=== PATIENT | female | born 1945 | race Caucasian/White ===

== ENCOUNTER 2024-10-19 18:54 | Inpatient (IN) ==
[2024-10-19 19:47] LABS: Venous Bicarbonate HCO3 22.9 mmol/L (24-28)
[2024-10-19 20:00] LABS: Activated Partial Thrombo Time 28.5 seconds (26.0-38.0); INR 1.15 (0.85-1.14)
[2024-10-19 20:16] LABS: Hemoglobin 9.6 g/dL (11.5-14.3); Red Blood Count 4.33 10^6/uL (3.63-4.92); White Blood Count 6.6 10^3/uL (3.8-11.8)
[2024-10-19] MEDS: Furosemide 40 mg/4 ml IV VIAL IV SLOW PU ONE (20:25)
[2024-10-19] MEDS: Albuterol/Ipratropium NEB.SOL (2.5/0.5 MG) 3 ML NEB.SOLN INH SCH (20:36)
[2024-10-19 20:39] LABS: Albumin 3.1 g/dL (3.5-5.7); Albumin/Globulin Ratio 1.1 (1-3); C Reactive Protein 32.09 mg/L (<8.01); Calcium 9.1 mg/dL (8.6-10.3); Creatinine, Serum 1.01 mg/dL (0.51-0.95); Globulin 2.9 g/dL (2-4); Potassium 4.5 mmol/L (3.5-5.0); Total Bilirubin 0.4 mg/dL (0.2-1.0); eGFR CKD-EPI 57.3 (>60)
[2024-10-19 20:41] LABS: ABS Basophils 0.1 10^3/uL (0.0-0.1); ABS Lymphocytes 1.2 10^3/uL (1.0-4.8); ABS Monocytes 0.3 10^3/uL (0.0-0.9); ABS Nucleated RBC 0.01 10^3/ul; Eosinophil % 0.4 %; Hematocrit 30.6 % (35-45); Lymphocyte % 17.9 %; Mean Corpuscular Hemoglobin 22.2 pg (27-33); Mean Corpuscular Hgb Conc 31.4 g/dL (31-36); Mean Corpuscular Volume 70.7 fL (80-97); Mean Platelet Volume 8.4 fL (7.5-11.2); Nucleated Red Blood Cells % 0.2 %/100WBC (0.0-0.8); Platelet Count 278 10^3/uL (150-450); Red Cell Distribution Width 22.2 % (12-17)
[2024-10-19 21:09] LABS: High Sensitivity Troponin 1 Hr 101 pg/mL (<15)
[2024-10-19] MEDS ORDERED: Ondansetron 4 mg VIAL 2 MG/ML 2 ml VIAL IV PRN (22:05)
[2024-10-20 01:06] LABS: Ferritin 34.1 ng/mL (11-307)
[2024-10-20] MEDS: Enoxaparin 40 MG/0.4 ML SYR SUBCUT SCH (01:14)
[2024-10-20] MEDS: Furosemide 40 mg/4 ml IV VIAL IV SLOW PU ONE (01:15)
[2024-10-20] MEDS: Orphenadrine Citrate INJ 30 mg/ml 2 ml VIAL (60 mg) IV ONE (02:50)
[2024-10-20] MEDS: diazePAM INJ CARPUJECT 5 MG/ML SYRINGE IV ONE (03:32)
[2024-10-20] MEDS: Morphine 2 MG/ML SYRINGE IV ONE (04:05)
[2024-10-20] MEDS: Morphine 2 MG/ML SYRINGE ONE (04:53)
[2024-10-20 05:27] LABS: ABS Lymphocytes 0.9 10^3/uL (1.0-4.8); ABS Monocytes 0.1 10^3/uL (0.0-0.9); ABS Neutrophils 4.2 10^3/uL (1.5-7.6); ABS Nucleated RBC 0.01 10^3/ul; Eosinophil % 0.1 %; Hematocrit 30.6 % (35-45); Hemoglobin 9.4 g/dL (11.5-14.3); Lymphocyte % 17.5 %; Mean Corpuscular Hemoglobin 22.2 pg (27-33); Mean Corpuscular Hgb Conc 30.7 g/dL (31-36); Mean Corpuscular Volume 72.4 fL (80-97); Mean Platelet Volume 8.7 fL (7.5-11.2); Nucleated Red Blood Cells % 0.2 %/100WBC (0.0-0.8); Platelet Count 276 10^3/uL (150-450); Red Blood Count 4.22 10^6/uL (3.63-4.92); Red Cell Distribution Width 22.2 % (12-17); White Blood Count 5.2 10^3/uL (3.8-11.8)
[2024-10-20 06:14] LABS: Anion Gap 10 mmol/L (2-16); Blood Urea Nitrogen 17 mg/dL (6-24); CO2 Carbon Dioxide 22 mmol/L (22-32); Chloride 104 mmol/L (101-111); Creatinine, Serum 1.12 mg/dL (0.51-0.95); Glucose 145 mg/dL (70-100); Magnesium 1.9 mg/dL (1.9-2.7); Sodium 136 mmol/L (135-145); eGFR CKD-EPI 50.6 (>60)
[2024-10-20] MEDS: Sulfur Hexaflouride MICROSPHR 25 MG VIAL IV PRN (09:12)
[2024-10-20] MEDS: Aspirin EC 81 mg TAB.EC (enteric coated) PO SCH (09:29)
[2024-10-20] MEDS: Nicotine PATCH 21 MG/24 HR PATCH TRANSDERM SCH (09:30)
[2024-10-20] MEDS: Ferric Gluconate IV 250 MG in NS 0.9% 250 ml 200 ML IVPB SCH (09:31)
[2024-10-20 18:32] LABS: Potassium, Whole Blood 4.3 mmol/L (3.4-4.5)
[2024-10-21 08:45] LABS: ABS Basophils 0.1 10^3/uL (0.0-0.1); ABS Eosinophils 0.1 10^3/uL (0.0-0.5); ABS Lymphocytes 2.6 10^3/uL (1.0-4.8); ABS Monocytes 0.6 10^3/uL (0.0-0.9); ABS Neutrophils 4.9 10^3/uL (1.5-7.6); Eosinophil % 0.8 %; Hematocrit 29.5 % (35-45); Mean Corpuscular Hemoglobin 21.7 pg (27-33); Mean Corpuscular Hgb Conc 30.6 g/dL (31-36); Mean Platelet Volume 8.4 fL (7.5-11.2); Nucleated Red Blood Cells % 1.2 %/100WBC (0.0-0.8); Platelet Count 272 10^3/uL (150-450); Red Blood Count 4.16 10^6/uL (3.63-4.92); Red Cell Distribution Width 21.5 % (12-17); White Blood Count 8.3 10^3/uL (3.8-11.8)
[2024-10-21 10:01] LABS: Albumin 2.9 g/dL (3.5-5.7); Albumin/Globulin Ratio 1.1 (1-3); Calcium 8.7 mg/dL (8.6-10.3); Creatinine, Serum 1.05 mg/dL (0.51-0.95); Globulin 2.7 g/dL (2-4); Potassium 4.7 mmol/L (3.5-5.0); Total Bilirubin 0.3 mg/dL (0.2-1.0); Total Protein 5.6 g/dL (6.4-8.9); eGFR CKD-EPI 54.7 (>60)
[2024-10-21] MEDS: Furosemide 40 mg/4 ml IV VIAL IV ONE (13:39)
[2024-10-21 16:01] LABS: Urine Appearance Extra Turbid; Urine Bilirubin Negative (Negative); Urine Blood 1+ (Negative); Urine Glucose Negative (Negative); Urine Ketones Negative (Negative); Urine Nitrite Negative (Negative); Urine Protein 1+ (>=30 mg/dL) (Negative); Urine Specific Gravity 1.006 (1.002-1.030); Urine Urobilinogen Negative (Negative); Urine pH 7.5 (5.0-8.0)
[2024-10-21 16:20] LABS: Urine Bacteria 1+ /HPF (Absent); Urine Red Blood Cell 3+(>10/hpf) /HPF (0-Trace); Urine Squamous Epithelial Cell Present /HPF (Absent); Urine White Blood Cell 3+(>20/hpf) /HPF (0-Trace)
[2024-10-21 16:21] LABS: Urine Color Light-Yellow
[2024-10-21] MEDS ORDERED: Polyethylene Glycol 3350 17 GM PACKET PO PRN (23:48)
[2024-10-21] MEDS ORDERED: Senna TAB 8.6 mg TAB PO PRN (23:48)
[2024-10-21] MEDS ORDERED: Magnesium Hydroxide LIQ 30 ML UDC PO PRN (23:48)
[2024-10-22 06:03] LABS: ABS Basophils 0.1 10^3/uL (0.0-0.1); ABS Eosinophils 0.1 10^3/uL (0.0-0.5); ABS Lymphocytes 2.8 10^3/uL (1.0-4.8); ABS Monocytes 0.5 10^3/uL (0.0-0.9); ABS Neutrophils 4.9 10^3/uL (1.5-7.6); ABS Nucleated RBC 0.06 10^3/ul; Eosinophil % 1.2 %; Hematocrit 31.2 % (35-45); Hemoglobin 9.8 g/dL (11.5-14.3); Lymphocyte % 33.6 %; Mean Corpuscular Hemoglobin 22.5 pg (27-33); Mean Corpuscular Hgb Conc 31.5 g/dL (31-36); Mean Corpuscular Volume 71.3 fL (80-97); Mean Platelet Volume 8.6 fL (7.5-11.2); Nucleated Red Blood Cells % 0.7 %/100WBC (0.0-0.8); Platelet Count 253 10^3/uL (150-450); Red Blood Count 4.37 10^6/uL (3.63-4.92); Red Cell Distribution Width 21.7 % (12-17); White Blood Count 8.4 10^3/uL (3.8-11.8)
[2024-10-22 06:20] LABS: Calcium 8.6 mg/dL (8.6-10.3); Creatinine, Serum 0.94 mg/dL (0.51-0.95); Magnesium 1.9 mg/dL (1.9-2.7); Potassium 4.1 mmol/L (3.5-5.0); eGFR CKD-EPI 62.5 (>60)
[2024-10-22] MEDS: Furosemide 40 mg/4 ml IV VIAL IV ONE (08:40)
[2024-10-22] MEDS: Magnesium Hydroxide LIQ 30 ML UDC PO SCH (08:40)
[2024-10-22] MEDS: Furosemide 40 mg/4 ml IV VIAL IV SCH (21:10)
[2024-10-23 06:36] LABS: Calcium 8.3 mg/dL (8.6-10.3); Creatinine, Serum 0.88 mg/dL (0.51-0.95); Potassium 3.4 mmol/L (3.5-5.0); eGFR CKD-EPI 67.6 (>60)
[2024-10-23] MEDS: Potassium Chloride LIQUID 20 MEQ/15 ML LIQUID PO ONE (09:07)
[2024-10-23] MEDS: cefTRIAXone 1 gm/50 mL D5W 1 GM/50 ML BAG IV SCH (13:20)
[2024-10-24 06:53] LABS: ABS Basophils 0.1 10^3/uL (0.0-0.1); ABS Eosinophils 0.2 10^3/uL (0.0-0.5); ABS Lymphocytes 2.9 10^3/uL (1.0-4.8); ABS Monocytes 0.5 10^3/uL (0.0-0.9); ABS Neutrophils 4.8 10^3/uL (1.5-7.6); ABS Nucleated RBC 0.05 10^3/ul; Eosinophil % 2.3 %; Hematocrit 33.7 % (35-45); Hemoglobin 10.5 g/dL (11.5-14.3); Lymphocyte % 34.6 %; Mean Corpuscular Hemoglobin 22.5 pg (27-33); Mean Corpuscular Hgb Conc 31.3 g/dL (31-36); Mean Platelet Volume 8.8 fL (7.5-11.2); Nucleated Red Blood Cells % 0.6 %/100WBC (0.0-0.8); Platelet Count 245 10^3/uL (150-450); Red Blood Count 4.68 10^6/uL (3.63-4.92); Red Cell Distribution Width 21.6 % (12-17); White Blood Count 8.5 10^3/uL (3.8-11.8)
[2024-10-24 06:56] LABS: Calcium 7.8 mg/dL (8.6-10.3); Creatinine, Serum 1.02 mg/dL (0.51-0.95); Magnesium 2.2 mg/dL (1.9-2.7); Potassium 4.1 mmol/L (3.5-5.0); eGFR CKD-EPI 56.7 (>60)
[2024-10-27 06:43] LABS: Hemoglobin 9.9 g/dL (11.5-14.3); Mean Corpuscular Hemoglobin 23.3 pg (27-33); Mean Corpuscular Hgb Conc 31.8 g/dL (31-36); Mean Corpuscular Volume 73.3 fL (80-97); Platelet Count 199 10^3/uL (150-450); Red Blood Count 4.24 10^6/uL (3.63-4.92); White Blood Count 7.7 10^3/uL (3.8-11.8)
[2024-10-27 06:46] LABS: Calcium 8.4 mg/dL (8.6-10.3); Creatinine, Serum 0.86 mg/dL (0.51-0.95); Potassium 3.6 mmol/L (3.5-5.0); eGFR CKD-EPI 69.5 (>60)
[2024-10-27 07:10] LABS: ABS Basophils 0.1 10^3/uL (0.0-0.1); ABS Eosinophils 0.2 10^3/uL (0.0-0.5); ABS Lymphocytes 2.6 10^3/uL (1.0-4.8); ABS Monocytes 0.7 10^3/uL (0.0-0.9); ABS Neutrophils 4.1 10^3/uL (1.5-7.6); ABS Nucleated RBC 0.01 10^3/ul; Eosinophil % 2.5 %; Lymphocyte % 33.8 %; Nucleated Red Blood Cells % 0.1 %/100WBC (0.0-0.8)
[2024-10-27 10:21] VITALS: BP 118/50
== END 2024-10-27 12:08 | DRG 291 ==
LOC: ED 18:54 → SUATTDRO 22:05 → EDHOLD 22:05 → ICU 23:25 → MED 10-20 17:25
PROVIDERS: ADMIT Student in an Organized Health Care Education/Training Program; ATTEND Family Medicine